=== PATIENT | female | born 1990 | race Caucasian/White ===

== ENCOUNTER 2018-01-08 18:58 | Emergency (ER) | payer MEDICAID ==
[~2018-01-08] VITALS: Ht 157.5 cm; Wt 90.7 kg
[~2018-01-08 18:58] MED LIST: CALC0.5C10; CALC1TAB17; LEVOTHYROXINE; PREN-95
[2018-01-08] MEDS ORDERED: ACETAMINOPHEN 325MG TABLET PO ONE (22:30)
[2018-01-08] MEDS ORDERED: LIDOCAINE HCL/PF 1% 10 MG/ML 5ML VIAL IJ ONE (22:30)
[2018-01-08] MEDS ORDERED: BACITRACIN ZINC OINT UDPKT TOP ONE (22:30)
[2018-01-08 23:44] VITALS: BP 106/81
== END 2018-01-09 00:14 | disposition home or self-care (01) ==
LOC: ER 21:21
DX: L03.032 Cellulitis of left toe (principal); Z85.850 Personal history of malignant neoplasm of thyroid; E89.0 Postprocedural hypothyroidism
CPT/HCPCS: 10060; 81025; 99283; J3490; Z7610